=== PATIENT | male | born 1995 | race Caucasian/White ===

== ENCOUNTER → 2024-10-10 | Outpatient (CLI) | payer MEDICAID, SELFPAY ==
[2024-10-10 15:25] LABS: Hemoglobin 14.1 g/dL (13.0-16.5); Mean Corp Hgb Conc 35.3 g/dL (32-36); Mean Corpuscular Hgb 30.5 pg (27.0-32.0); Mean Corpuscular Volume 86.4 fL (80-94); Mean Platelet Vol. 9.3 fl (6.2-12.0); Platelet Count 260 K/mm3 (150-450); RBC Distribution Width CV 11.9 % (11.6-14.6); RBC Distribution Width SD 37.4 fl (35.1-43.9); Red Blood Count 4.63 M/mm3 (4.6-6.2); White Blood Count 9.7 K/mm3 (4.4-11.0)
[2024-10-10 21:46] LABS: ALB/GLOB Ratio 1.5 RATIO (0.9-2.4); AST(SGOT) 29 U/L (<=37); Alanine Aminotransfer ALT/SGPT 52 U/L (<=46); Albumin, Serum 4.5 g/dL (3.5-5.0); Alkaline Phosphatase 83 U/L (40-129); BUN 16 mg/dL (4-19); BUN/Creat Ratio 15.4 RATIO (10-20); Creatinine, Serum 1.05 mg/dL (0.70-1.20); EST Glomerular Filtration Rate 100 (>60); Glucose 85 mg/dL (70-99); Protein, Total 7.5 g/dL (5.9-8.4); Thyroid Stim Hormone (TSH) 0.489 uIU/mL (0.300-4.200); Total Bilirubin 0.33 mg/dL (0.00-1.30); Vitamin D,25 Hydroxy 11.8 ng/mL (30-100)
[2024-10-10 22:25] LABS: Anion Gap 14 (5-15); Calcium,Total 9.4 mg/dL (7.6-11.0); Carbon Dioxide 20.9 mmol/L (21.0-32.0); Chloride 103 mmol/L (98-108); Potassium 3.9 mmol/L (3.3-5.1); Sodium Level 138 mmol/L (133-145)
== END | disposition home or self-care (01) ==
LOC: VSLAB 15:05
PROVIDERS: PCP Nurse Practitioner Family; Visit Provider Nurse Practitioner Family
DX: F41.1 Generalized anxiety disorder (principal)
CPT/HCPCS: 36415; 80053; 82306; 84443; 85027

== ENCOUNTER → 2025-02-23 | Outpatient (CLI) | payer OTHER, SELFPAY ==
--- NOTE | 2025-02-23 14:23 | RAD_ITS ---
PROCEDURE: LUMBAR SPINE 2 OR 3 VIEWS 02/23/2025 REASON FOR EXAM: BACK INJURY TECHNIQUE: LUMBAR SPINE 2 OR 3 VIEWS COMPARISON: None FINDINGS: Vertebrae: Unremarkable Discs: Disc spaces are well-maintained. Alignment: Exaggerated lumbar lordosis Other: RAD/Lumbar Spine 2 or 3 Views IMPRESSION: Exaggerated lumbar lordosis. The disc spaces are well-maintained. Reading Location: [facility]
--- NOTE | 2025-02-23 14:23 | RAD_ITS ---
PROCEDURE: LUMBAR SPINE 2 OR 3 VIEWS 02/23/2025 REASON FOR EXAM: BACK INJURY TECHNIQUE: LUMBAR SPINE 2 OR 3 VIEWS COMPARISON: None FINDINGS: Vertebrae: Unremarkable Discs: Disc spaces are well-maintained. Alignment: Exaggerated lumbar lordosis Other: RAD/Lumbar Spine 2 or 3 Views IMPRESSION: Exaggerated lumbar lordosis. The disc spaces are well-maintained. Reading Location: [facility]
== END | disposition home or self-care (01) ==
PROVIDERS: PCP Nurse Practitioner Family; Referring Provider Physician Assistant Surgical; Visit Provider Physician Assistant Surgical
DX: S39.92XA Unspecified injury of lower back, initial encounter (principal); X58.XXXA Exposure to other specified factors, initial encounter
CPT/HCPCS: 72100

== ENCOUNTER → 2025-07-10 | Outpatient (CLI) | payer OTHER, SELFPAY ==
--- NOTE | 2025-07-10 11:00 | RAD_ITS ---
PROCEDURE: KNEE 4 OR MORE VIEWS 07/10/2025 REASON FOR EXAM: PAIN IN LEFT KNEE TECHNIQUE: Procedure Code: RADKN Modality: DX Procedure: KNEE 4 OR MORE VIEWS Left knee four views COMPARISON: None FINDINGS: There is no fracture or dislocation identified. Soft tissue swelling is noted in the prepatellar soft tissues. There is no visible radiopaque foreign body. Mineralization is normal. There is no visible atherosclerosis. RAD/Knee 4 or More Views IMPRESSION: There is soft tissue swelling with no fracture or dislocation identified. Reading Location: [facility]
--- OUTSIDE RECORDS SUMMARY | 2025-07-10 13:30 | XMS RPT_ITS | CCD ---
Author Organization [facility] Care Team Providers Care Crisis Therapist Name Role Phone CHANDURKAR, ALAKNANDA S Unavailable Unavaila ble CHANDURKAR, ALAKNANDA S Unavailable Unavaila ble Stephen Bran Olaf Unavailable Unava ilGarth Nogueira Attending Unavailable Varsha Pinedo Attending Unavailable PALOMA Georeg Attending UnavailXiao Shaw Attending Unavailable William BOAT MECHANIC-C, Juliet Primary Care Provider William BOAT MECHANIC-C, Juliet Attending Provider William BOAT MECHANIC-C, [facility] Primary Care Provider William BOAT MECHANIC-C, Juliet Referring Provider Isma Pace Attending Provider Panda Jha Attending Provider [phone] Panda Jha Referring Provider [phone] William BOAT MECHANIC-C, Juliet Primary Care Provider William BOAT MECHANIC-C, Juliet Referring Provider William VSC, Juliet Referring Unavailabl e William VSC, Juliet Primary Care UnavailPanda Eddy Attending Unavailable William VSC, Juliet Primary Care Unavailabl e William VSC, Juliet Attending UnavailPanda Eddy Referring Unavailable William VSC, Juliet Primary Care UnavailPanda Eddy Attending Unavailable Isma Pace Attending Unavailable William VSC, Juliet Referring Unavailabl e William VSC, Juliet Primary Care UnavailIsma Hair Attending Unavailable William VSC, Juliet Referring Unavailabl e William VSC, Juliet Primary Care Unavailabl e William VSC, Juliet Referring UnavailPanda Eddy Attending Unavailable William VSC, [facility] e [facility], [facility] Attending Unavailable [facility], [facility] Referring [facility] e [facility], [facility] Referring [facility] Attending Unavailable [facility], [facility] Unavailabl e Medications Current Medications Medication Drug Class(es) Dates Sig (Normalized) Sig (Original) Veazie (Nk) (2 sources) Start: 03-02-2025 Veazie (Nk) A ctive March 02, 2025 12:00am Completed/Discontinued Medications Medication Drug Class(es) Dates Sig (Normalized) Sig (Original) cyclobenzaprine hydrochloride 10 mg oral tablet (5 sources) Muscle Relaxant Start: 03-02-2025 End: 03-07-2025 take 1 tablet by mouth three times daily as needed for muscle spasms Cyclobenzaprine 10 mg tablet Discontinued 10 mg PO THREE TIMES A DAY as needed for muscle spasm 20 5 0 March 02, 2025 5:13pm March 06, 2025 12:00am March 07, 2025 12:07am Start: 02-23-2025 End: 02-28-2025 take 1 tablet by mouth three times daily as needed for muscle spasms Cyclobenzaprine 10 mg tablet Discontinued 10 mg PO THREE TIMES A DAY as needed for muscle spasm 20 5 0 February 23, 2025 12:00am February 27, 2025 12:00am February 28, 2025 12:06am methylPREDNISolone 4 mg oral tablet (4 sources) Corticosteroid Start: 02-23-2025 End: 03-01-2025 take 1 tablet by mouth once Methylprednisolone (Medrol (Mohan)) 4 mg tablets,dose pack Discontinued 4 mg PO per package directions 21 6 0 February 23, 2025 12:00am February 28, 2025 12:00am March 01, 2025 12:07am Problems Problem Classification Problem Date Documented Date Episodic/Chronic Administrative/social admission (6 sources) Patient encounter status; Translations: [Encounter for pre-employment examination] 10-31-2024 Episodic Anxiety disorders (1 source) Generalized anxiety disorder; Translations: [Generalized anxiety disorder] Onset: 10-24-2024 Chronic Attention-deficit, conduct, and disruptive behavior disorders (1 source) Attention-deficit hyperactivity disorder, unspecified type; Translations: [ADHD] Onset: 10-10-2022 Chronic Other injuries and conditions due to external causes (1 source) Unspecified injury of lower back, initial encounter; Translations: [Unspecified injury of lower back, initial encounter] Onset: 03-14-2025 Episodic Sprains and strains (8 sources) Lower back injury; Translations: [Strain of muscle, fascia and tendon of lower back, initial encounter] Onset: 03-27-2025 02-24-2025 Episodic Results Test Name Value Interpretation Reference Range Facility Urgent Care Visit Reporton 0 03-10-2025 Urgent Care Visit Report [facility] [address], [address] [place] [address] OFFICE VISIT Date of Service: 03/10/25 MR#: [id number] Acct: [id number] Name: HAI WALTERS Rep #: [id number] : 1995 Provider: KARTIK Mckinnon Age/Sex: 29/M Location: [facility] Status: Signed Intake Vital Signs 03/10/25 16:36 BP 130/74 H Blood Pressure Location Lt brachial Position Sitting Respiration 16 Pulse 89 Pulse Source NIBP Temp 98.0 F Temp Source Oral Pulse Oximetry (%) 99 Oxygen Delivery Method room air Intake Visit Reasons: FU/BACK INJURY/[facility] Chief Complaint: WC f/u back pain Movie Theater Manager Required: No Allergies No Known Allergies Allergy (Verified 03/10/25 16:36) Medications ???Medication ???Instructions ???Recorded ???Confirmed ???Type NK 03/02/25 03/10/25 History Have you fallen in the past year?: Yes [facility] Medical History (Updated 02/24/25 @ 06:20 by KARTIK Marino) Physical exam, pre-employment HPI HPI Chief Complaint: WC f/u back pain Details: HAI WALTERS, is a 29 M who presents to the office today for follow-up of work-related injury. Patient states that his back pain has resolved and he is ready to go back to work without restrictions. He denies numbness, tingling or loss of range of motion. No pelvic or abdominal pain. No loss of bowel or bladder control. No other associated symptoms or alleviating/aggrava ting factors. ROS Const Constitutional: No other (6 system ROS completed with pertinent findings in the HPI otherwise normal.) Exam Const General: cooperative and healthy appearing Resp Effort Inspection: normal respiratory effort Cardio Rate: regular rate Musc Thoracic/Lumbar Spine: thoracic and lumbar spine normal to inspection Skin General: no rashes or lesions noted Neuro General: patient alert and CN's II-XI intact bilaterally Psych Appearance: grossly normal Mental Status: mental status grossly normal Coding Level of Care Code Off vis,est,level 3 Diagnoses Acute myofascial strain of lumbar region S39.012A Assessment and Plan Assessment and Plan (1) Acute myofascial strain of lumbar region: Status: Acute Plan: [employer] 14 filled out releasing patient back to work today without restrictions. Patient advised to continue with at home stretching regimens and use of ibuprofen or Tylenol as needed for pain. Patient verbalized understanding and agreement with all the above. Clinical Quality Measures Falls Risk Screening/Assistive Devices Have you fallen in the past year?: Yes 03/10/251702 Date Panda Flores Signature: Date (if applicable) CC: Normal [facility] Urgent Care Visit Reporton 0 03-02-2025 Urgent Care Visit Report [facility] [address], [address] [place] [address] OFFICE VISIT Date of Service: 03/02/25 MR#: [id number] Acct: [id number] Name: HAI WALTERS MINDY Rep #: [id number] : 1995 Provider: KARTIK Mckinnon Age/Sex: 29/M Location: [facility] Status: Signed Intake Vital Signs 03/02/25 16:47 BP 110/76 Blood Pressure Location Lt brachial Position Sitting Respiration 15 Pulse 85 Pulse Source NIBP Temp 98.7 F Temp Source Oral Pulse Oximetry (%) 97 Oxygen Delivery Method room air Intake Visit Reasons: FU/BACK INJURY/[facility] Chief Complaint: WC f/u back pain Movie Theater Manager Required: No Is patient in pain?: Yes Allergies No Known Allergies Allergy (Verified 03/02/25 16:48) Medications ???Medication ???Instructions ???Recorded ???Confirmed ???Type NK 03/02/25 03/02/25 History cyclobenzaprine 10 mg tablet 10 mg PO TID PRN muscle spasm 5 03/02/25 Rx days #20 tabs Have you fallen in the past year?: Yes [facility] Medical History (Updated 02/24/25 @ 06:20 by KARTIK Marino) Physical exam, pre-employment HPI HPI Chief Complaint: WC f/u back pain Details: HAI WALTERS, is a 29 M who presents to the office today for follow-up of work-related injury to the low back. Patient states that his low back pain was improving quite a bit and then had interaction with the resident yesterday where the resident was pulling on his shoulders and caused his back to tweak. Patient denies numbness, tingling or loss of range of motion. He does state that the cyclobenzaprine is helping. No pelvic or abdominal pain. No loss of bowel or bladder control. No other associated symptoms or alleviating/aggrava ting factors. ROS Const Constitutional: No other (6 system ROS completed with pertinent findings in the HPI otherwise normal.) Exam Const General: cooperative and healthy appearing Resp Effort Inspection: normal respiratory effort Cardio Rate: regular rate Musc Thoracic/Lumbar Spine: straight leg raise negative bilaterally, paraspinal tenderness on the left in the lower lumbar, thoraco-lumbar ROM limited, thoraco-lumbar spasm on the left in the lower lumbar, no thoracic spinal tenderness and no lumbar spinal tenderness Skin General: no rashes or lesions noted Neuro General: patient alert and CN's II-XI intact bilaterally Psych Appearance: grossly normal Mental Status: mental status grossly normal Coding Level of Care Code Off vis,est,level 3 Diagnoses Acute myofascial strain of lumbar region S39.012A Assessment and Plan Assessment and Plan (1) Acute myofascial strain of lumbar region: Status: Acute Plan: [employer] 14 filled out releasing patient back to work today with restrictions similar as last time although added that he is not able to have direct resident interaction. Patient advised to continue with stretching exercises and ibuprofen or Tylenol as needed for pain. Advise follow-up here in 1 week for reevaluation or sooner should he have any worsening symptoms or new concerns. Patient advised of other symptomatic management techniques as well as potential red flags and when appropriate to report to the ED. Patient verbalized understanding and agreement with all the above. Medications: Refilled cyclobenzaprine 10 mg PO TID 5 days PRN 20 tabs 0RF muscle spasm Clinical Quality Measures Falls Risk Screening/Assistive Devices Have you fallen in the past year?: Yes 03/02/25 1720 Date Panda VERDUGO Cosigner Signature: Date (if applicable) CC: Normal [facility] Lumbar Spine 2 or 3 Viewson 02-23-2025 Lumbar Spine 2 or 3 Views [facility] Imaging Services [address] [place] [address] Lumbar Spine 2 or 3 Views MR#: [id number] Acct: [id number] Name: HAI WALTERS MINDY Rep #: [id number] : 1995 M 29 From: Huang pérez MD PCP: NORY Paulson, BOAT MECHANIC-C Status: REG CLI Study: Lumbar Spine 2 or 3 Views Date of Exam: Exam# [id number] Ordering Dr: Panda Weston PROCEDURE: LUMBAR SPINE 2 OR 3 VIEWS 02/23/2025 REASON FOR EXAM: BACK INJURY TECHNIQUE: LUMBAR SPINE 2 OR 3 VIEWS COMPARISON: None FINDINGS: Vertebrae: Unremarkable Discs: Disc spaces are well-maintained. Alignment: Exaggerated lumbar lordosis Other: RAD/Lumbar Spine 2 or 3 Views IMPRESSION: Exaggerated lumbar lordosis. The disc spaces are well-maintained. Reading Location: [facility] CC: [facility] BOAT MECHANIC-C Juliet Thomas; KARTIK Mckinnon Conveyor Feeder Offbearer: Signed Normal [facility] Urgent Care Visit Reporton 0 02-23-2025 Urgent Care Visit Report [facility] [address], [address] [place] [address] OFFICE VISIT Date of Service: 02/23/25 MR#: [id number] Acct: [id number] Name: HAI WALTERS Rep #: [id number] : 1995 Provider: KARTIK Mckinnon Age/Sex: 29/M Location: [facility] Status: Signed Intake Vital Signs 02/23/25 14:59 BP 120/64 Blood Pressure Location Lt brachial Position Sitting Respiration 15 Pulse 64 Pulse Source NIBP Temp 98.2 F Temp Source Oral Pulse Oximetry (%) 98 Oxygen Delivery Method room air Intake Visit Reasons: PA/BACK INJURY/[facility] Chief Complaint: new back injury Movie Theater Manager Required: No Is patient in pain?: Yes Allergies No Known Allergies Allergy (Verified 02/23/25 14:59) Have you fallen in the past year?: Yes [facility] Medical History (Updated 02/24/25 @ 06:20 by Panda VERDUGO PA) Physical exam, pre-employment HPI HPI Chief Complaint: new back injury Details: HAI WALTERS, is a 29 M who presents to the office today for initial evaluation of a low back injury which occurred yesterday at work. Patient states that he was playing dodgeball and slipped multiple times falling onto his butt causing left-sided low back pain. Patient states that pain is worse today when he awoke and predominantly left low side of the back. He denies numbness, tingling or loss of range of motion. No pelvic or abdominal pain. No loss of bowel or bladder control. Patient denies history of low back pain. No other associated symptoms or alleviating/aggrava ting factors. ROS Const Constitutional: No other (6 system ROS completed with pertinent findings in the HPI otherwise normal.) Exam Const General: cooperative and healthy appearing Resp Effort Inspection: normal respiratory effort Cardio Rate: regular rate Musc Thoracic/Lumbar Spine: straight leg raise negative bilaterally, paraspinal tenderness on the left in the lower lumbar, thoraco-lumbar ROM limited, thoraco-lumbar spasm on the left in the lower lumbar, no thoracic spinal tenderness and no lumbar spinal tenderness Skin General: no rashes or lesions noted Neuro General: patient alert and CN's II-XI intact bilaterally Psych Appearance: grossly normal Mental Status: mental status grossly normal Coding Level of Care Code Off vis,est,level 4 Diagnoses Acute myofascial strain of lumbar region S39.012A Assessment and Plan Assessment and Plan (1) Acute myofascial strain of lumbar region: Status: Acute Orders: Orders Lumbar Spine 2 or 3 Views 02/23/25 S39.92XA - Unspecified injury of lower back, initial encounter Medications: New cyclobenzaprine 10 mg PO TID 5 days PRN 20 tabs 0RF muscle spasm methylprednisolone (Medrol (Mohan)) 4 mg PO PER PKG DIR 6 days 21 tabs 0RF Plan Three-view lumbar x-ray read and interpreted by myself findings no acute osseous abnormalities, awaiting radiology interpretation at time of patient discharge. Cyclobenzaprine and Medrol Dosepak as prescribed today. First report of injury form as well as [employer] 14 filled out releasing patient back to work today with restrictions of no lifting/pushing/pul ling greater than 5 pounds and no squatting, stooping, bending. Encouraged to get plenty of rest, drink lots of clear liquids, and use Tylenol or Ibuprofen (unless contraindicated) for comfort. Patient also educated on other symptomatic management techniques. To be seen in 1 week for follow-up; sooner if worsening of symptoms. Patient advised of potential red flags and when appropriate to report to the ED. Patient verbalized understanding and agreement with all the above. Clinical Quality Measures Falls Risk Screening/Assistive Devices Have you fallen in the past year?: Yes 02/24/25 0623 Date Panda Flores Signature: Date (if applicable) CC: Normal [facility] Office Visit Reporton [address] [facility] [address] [place] [address] OFFICE VISIT Date of Service: 12/08/24 MR#: [id number] Acct: [id number] Patient: HAI WALTERS Rep #: [id number] : 1995 Provider: KARTIK Mckinnon Age/Sex: 29/M Location: [facility] Status: Signed Intake Intake Visit Reasons: PE NON DOT DRUG / [facility] Office Procedures [facility] Billing Sheet Testing Pre-Employment Drug Screen [facility]: Yes 12/15/24 1349 Date Panda Huertaignjessica Signature: Date (if applicable) CC: Normal [facility] Office Visit Reporton [address] [facility] [address] [place] [address] OFFICE VISIT Date of Service: 10/31/24 MR#: [id number] Acct: [id number] Patient: HAI WALTERS Rep #: [id number] : 1995 Provider: KARTIK Soto Age/Sex: 28/M Location: [facility] Status: Signed Intake Intake Visit Reasons: [facility] Billing Sheet Testing Pre-Employment Drug Screen: Yes Pre-Employment PE: Yes 11/07/24 0706 Date Isma Flores Signature: Date (if applicable) CC: Normal [facility] Urgent Care Visit Reporton 0 10-31-2024 Urgent Care Visit Report [facility] [address], [address] [place] [address] OFFICE VISIT Date of Service: 10/31/24 MR#: [id number] Acct: [id number] Name: HAI WALTERS Rep #: [id number] : 1995 Provider: KARTIK Soto Age/Sex: 28/M Location: [facility] Status: Signed Intake Intake Visit Reasons: PE NON DOT PHYSICAL/[facility] Medical History (Updated 10/31/24 @ 09:25 by KARTIK Welsh) Physical exam, pre-employment HPI HPI Details: HAI WALTERS, is a 28 M who presents to the office today for Office Procedures Physical Exam Coding PE Coding Pre-employment PE: Yes Coding Level of Care Code No Charge Diagnoses Physical exam, pre-employment Z02.1 Assessment and Plan Assessment and Plan (1) Physical exam, pre-employment: Status: Acute 10/31/24 0959 Date Isma Flores Signature: Date (if applicable) CC: Normal [facility] Anion gap in Serum or Plasma Ordered By: [facility] Juliet Thomas on 10-10-2024 Anion gap [Moles/Vol] 14 mmol/L 5-15 [facility] BUN/creatinine ratioOrdered By: [facility] Juliet Thomas on 03-03-2025 Urea nitrogen/Creatinine [Mass ratio] 15.4 mg/mg 10-20 [facility] Bilirubin, totalOrdered By: [facility] Juliet Thomas on 10-10-2024 Bilirubin [Mass/Vol] 0.33 mg/dL 0.00-1.30 [facility] CBC-Complete Blood Cnt No Di ffon 10-10-2024 Erythrocyte distribution width (RBC) [Ratio] 11.9 % Normal 11.6-14.6 [facility] Comment on above: Performed By: #### L 506.1001, L100.0500, L501.9520, L500.4050 #### [facility] [address] [place], [address] Hematocrit (Bld) [Volume fraction] 40.0 % Normal 40-54 [facility] Comment on above: Performed By: #### L 506.1001, L100.0500, L501.9520, L500.4050 #### [facility] [address] [place], [address] Hemoglobin (Bld) [Mass/Vol] 14.1 g/dL Normal 13.0-16.5 [facility] Comment on above: Performed By: #### L 506.1001, L100.0500, L501.9520, L500.4050 #### [facility] [address] [place], [address] MCH (RBC) [Entitic mass] 30.5 pg Normal 27.0-32.0 [facility] Comment on above: Performed By: #### L 506.1001, L100.0500, L501.9520, L500.4050 #### [facility] [address] [place], [address] MCHC (RBC) [Mass/Vol] 35.3 g/dL Normal 32-36 [facility] Comment on above: Performed By: #### L 506.1001, L100.0500, L501.9520, L500.4050 #### [facility] [address] [place], [address] MCV (RBC) [Entitic vol] 86.4 fL Normal 80-94 [facility] Comment on above: Performed By: #### L 506.1001, L100.0500, L501.9520, L500.4050 #### [facility] [address] [place], [address] Platelet mean volume (Bld) [Entitic vol] 9.3 fL Normal 6.2-12.0 [facility] Comment on above: Performed By: #### L 506.1001, L100.0500, L501.9520, L500.4050 #### [facility] [address] [place], [address] Platelets (Bld) [#/Vol] 260 10*3/uL Normal 150-450 [facility] Comment on above: Performed By: #### L 506.1001, L100.0500, L501.9520, L500.4050 #### [facility] [address] [place], [address] RBC (Bld) [#/Vol] 4.63 10*6/uL Normal 4.6-6.2 [facility] Comment on above: Performed By: #### L 506.1001, L100.0500, L501.9520, L500.4050 #### [facility] [address] [place], [address] RDW SD 37.4 fl Normal 35.1-43.9 [facility] Comment on above: Performed By: #### L 506.1001, L100.0500, L501.9520, L500.4050 #### [facility] [address] [place], [address] WBC (Bld) [#/Vol] 9.7 10*3/uL Normal 4.4-11.0 [facility] Comment on above: Performed By: #### L 506.1001, L100.0500, L501.9520, L500.4050 #### [facility] [address] [place], [address] Carbon dioxide, total [Moles /volume] in Central venous bloodOrdered By: [facility] Juliet Thomas on 10-10-2024 CO2 [Moles/Vol] 20.9 mmol/L Low 21.0-32.0 [facility] Chloride assayOrdered By: [facility] Juliet Thomas on 10-10-2024 Chloride [Moles/Vol] 103 mmol/L 98-108 [facility] Comprehensive Metabolic Prof ilon 10-10-2024 Calcium [Mass/Vol] 9.4 mg/dL Normal 7.6-11.0 [facility] Comment on above: Performed By: #### L 506.1001, L100.0500, L501.9520, L500.4050 #### [facility] [address] [place], [address] Chloride [Moles/Vol] 103 mmol/L Normal 98-108 [facility] Comment on above: Performed By: #### L 506.1001, L100.0500, L501.9520, L500.4050 #### [facility] [address] [place], [address] CO2 [Moles/Vol] 20.9 mmol/L Low 21.0-32.0 [facility] Comment on above: Performed By: #### L 506.1001, L100.0500, L501.9520, L500.4050 #### [facility] [address] [place], [address] GAP 14 Normal 5-15 [facility] Comment on above: Performed By: #### L 506.1001, L100.0500, L501.9520, L500.4050 #### [facility] [address] [place], [address] Potassium [Moles/Vol] 3.9 mmol/L Normal 3.3-5.1 [facility] Comment on above: Performed By: #### L 506.1001, L100.0500, L501.9520, L500.4050 #### [facility] [address] [place], [address] Sodium [Moles/Vol] 138 mmol/L Normal 133-145 [facility] Comment on above: Performed By: #### L 506.1001, L100.0500, L501.9520, L500.4050 #### [facility] [address] [place], [address] Erythrocyte distribution wid th ratioOrdered By: [facility] Juliet Thomas on 10-10-2024 Erythrocyte distribution width (RBC) [Ratio] 11.9 % 11.6-14.6 [facility] Erythrocyte distribution wid th standard deviationOrdered By: [facility] Juliet Thomas on 10-10-2024 Erythrocyte distribution width (RBC) [Entitic vol] 37.4 fL 35.1-43.9 [facility] GFR/1.73 sq M.predicted angelica g non-blacks MDRD (S/P/Bld) [Vol rate/Area]Ordered By: [facility] Juliet Thomas on 10-10-2024 Estimated GFR (MDRD) Non-Af Amer 100 >60 [facility] Comment on above: mL/min/1.73m2 CKD-EP I Creatinine Equation (2020) Hematocrit Auto (Bld) [Volum e fraction]Ordered By: [facility] Juliet Thomas on 10-10-2024 Hematocrit (Bld) [Volume fraction] 40.0 % 40-54 [facility] Hemoglobin measurementOrdere d By: [facility] Juliet Thomas on 10-10-2024 Hemoglobin (Bld) [Mass/Vol] 14.1 g/dL 13.0-16.5 [facility] L506.1001on 10-10-2024 Vitamin D 25-OH 11.8 ng/mL Low 30-100 [facility] Comment on above: Result Comment: Concepcion min D Status Deficiency: <20 ng/mL (50nmol/L) Insufficiency: 20-30 ng/mL (50-75 nmol/L) Sufficiency: 30-100 ng/mL (75-250 nmol/L) Toxicity: >100 ng/mL (>250 nmol/L) Performed By: #### L 506.1001, L100.0500, L501.9520, L500.4050 #### [facility] Laboratory [address] [place], [address] Laboratory - Chemistry and C hemistry - challengeOrdered By: [facility] Juliet Thomas on 10-10-2024 AST [Catalytic activity/Vol] 29 U/L <38 [facility] MCV (mean corpuscular volume ) determinationOrdered By: [facility] Juliet Thomas on 10-10-2024 MCV (RBC) [Entitic vol] 86.4 fL 80-94 [facility] Mean corpuscular hemoglobin (MCH) determinationOrdered By: [facility] Juliet Thomas on 10-10-2024 MCH (RBC) [Entitic mass] 30.5 pg 27.0-32.0 [facility] Mean corpuscular hemoglobin concentration (MCHC) determinationOrdered By: [facility] Juliet Tohmas on 10-10-2024 MCHC (RBC) [Mass/Vol] 35.3 g/dL 32-36 [facility] Mean platelet volume determi nationOrdered By: [facility] Juliet Thomas on 10-10-2024 Platelet mean volume (Bld) [Entitic vol] 9.3 fL 6.2-12.0 [facility] Platelet countOrdered By: [facility] Juliet Thomas on 10-10-2024 Platelets (Bld) [#/Vol] 260 10*3/uL 150-450 [facility] Potassium (Unsp spec) [Mass/ Vol]Ordered By: [facility] Juliet Thomas on 10-10-2024 Potassium [Moles/Vol] 3.9 mmol/L 3.3-5.1 [facility] RBC Auto (Bld) [#/Vol]Ordere d By: [facility] Juliet Thomas on 10-10-2024 RBC (Bld) [#/Vol] 4.63 10*6/uL 4.6-6.2 [facility] Serum creatinine measurement (mass/volume)Ordered By: [facility] Juliet Thomas on 10-10-2024 Creatinine [Mass/Vol] 1.05 mg/dL 0.70-1.20 [facility] Serum globulin measurementOr dered By: [facility] Juliet Thomas on 10-10-2024 Globulin (S) [Mass/Vol] 3.0 g/dL 2.2-4.2 [facility] Serum glucose measurement (m ass/volume)Ordered By: [facility] Juliet Thomas on 10-10-2024 Glucose [Mass/Vol] 85 mg/dL 70-99 [facility] Serum or plasma alanine gonzales otransferase (ALT) measurementOrdered By: [facility] Juliet Thomas on 10-10-2024 ALT [Catalytic activity/Vol] 52 U/L High <47 [facility] Serum or plasma albumin mary jo urement (mass/volume)Ordered By: [facility] Juliet Thomas on 10-10-2024 Albumin [Mass/Vol] 4.5 g/dL 3.5-5.0 [facility] Serum or plasma albumin/glob ulin mass ratioOrdered By: [facility] Juliet Thomas on 10-10-2024 Albumin/Globulin [Mass ratio] 1.5 {ratio} 0.9-2.4 [facility] Serum or plasma alkaline aditi sphatase measurementOrdered By: [facility] Juliet Thomas on 10-10-2024 ALP [Catalytic activity/Vol] 83 U/L 40-129 [facility] Serum or plasma calcium mary jo urement (mass/volume)Ordered By: [facility] Juliet Thomas on 10-10-2024 Calcium [Mass/Vol] 9.4 mg/dL 7.6-11.0 [facility] Serum or plasma urea nitroge n measurement (mass/volume)Ordered By: [facility] Juliet Thomas on 10-10-2024 Urea nitrogen [Mass/Vol] 16 mg/dL 4-19 [facility] Sodium levelOrdered By: [facility] Juliet Thomas on 10-10-2024 Sodium [Moles/Vol] 138 mmol/L 133-145 [facility] TSH DL <= 0.005 mIU/L QnOrde red By: [facility] Juliet Thomas on 10-10-2024 Thyroid Stimulating Hormone (TSH) 0.489 uIU/mL 0.300-4.200 [facility] Thyroid Stim Hormone (TSH)on 10-10-2024 TSH 0.489 uIU/mL Normal 0.300-4.200 [facility] Comment on above: Performed By: #### L 506.1001, L100.0500, L501.9520, L500.4050 #### [facility] Laboratory [address] [place], [address] Total proteinOrdered By: [facility] Juliet Thomas on 10-10-2024 Protein [Mass/Vol] 7.5 g/dL 5.9-8.4 [facility] Vitamin D, 25-hydroxyOrdered By: [facility] Juliet Thomas on 10-10-2024 Vitamin D 25-Hydroxy 11.8 ng/mL Low 30-100 [facility] Comment on above: Vitamin D StatusDefi ciency: <20 ng/mL (50nmol/L)Insufficiency: 20-30 ng/mL (50-75 nmol/L)Sufficiency: 30-100 ng/mL (75-250 nmol/L)Toxicity: >100 ng/mL (>250 nmol/L) White blood cell (WBC) count Ordered By: [facility] Juliet Thomas on 10-10-2024 WBC (Bld) [#/Vol] 9.7 10*3/uL 4.4-11.0 [facility] LIPID PANELon 04-09-2022 Cholesterol [Mass/Vol] 169 mg/dL Normal <200 [facility] Comment on above: Performed By: #### P ROFLIPID #### [facility] [address] [address] Cholesterol in HDL [Mass/Vol] 67.0 mg/dL Normal >40 [facility] Comment on above: Performed By: #### P ROFLIPID #### [facility] [address] [address] LDL,CALC 92 Normal SEE COMMENT [facility] Comment on above: Result Comment: The National Cholesterol Education Program's (NCEP) Adult Treatment Panel III (ATPIII) guidelines for lipids are as follows: LDL Cholesterol - Primary Target of Therapy Target value for LDL is based on overall risk of heart disease: <100 MG/DL Is desirable if clinical atherosclerotic disease or diabetes has been diagnosed. <130 MG/DL Is desirable if 2 or more risk factors are present. Total Cholesterol <200 Desirable 200-239 Borderline High >239 High HDL Cholesterol <40 Low >59 Desirable Serum Triglycerides <150 Normal 150-199 Borderline High 200-499 High >499 Very High The lipid profile should be correlated with the presence of other risk factors for coronary heart disease. Additional information is available at: www.nhlbi.nih.gov/guidelines/cholesterol/index.htm. Performed By: #### P ROFLIPID #### [facility] [address] [address] Triglyceride [Mass/Vol] 52 mg/dL Normal <150 T [facility] Comment on above: Performed By: #### P ROFLIPID #### [facility] [address] [address] STRESSIon 04-09-2022 STRESSI [facility] [address] [address] Stress Report HAI WALTERS [id number] REG REF [id number] 97 [birth year] Sandeep Jones MD Type of Study: Stress Procedure Procedure Date/Time: 04/09/2022 7:33:59 AM Indications: PRE EMPLOYMENT Reason for Ending: Protocol Completed Clinical Data: Protocol: Efra - 2 minute Total Exercise Time: 07:01 Max HR: 174 % Max HR Achieved: 89 Max BP: 199/67 METS: 12.8 HRxBP: 54907 Rest ECG: Sinus Bradycardia Stress ECG: no EKG changes normal hear rate and blood pressure response Symptoms: no chest pain Arrhythmias: No Rhythm Abnormality Present During Test Conclusions: Sinus Bradycardia no EKG changes normal hear rate and blood pressure response No Rhythm Abnormality Present During Test no chest pain Protocol: Efra - 2 minute Total Exercise Time: 07:01 Max HR: 174 % Max HR Achieved: 89 Max BP: 199/67 METS: 12.8 HRxBP: 99451 PRE EMPLOYMENT Protocol Completed Electronically signed by DORON RAMÍREZ M.D. 04/09/2022 3:39:35 PM Normal [facility] WCCXRSVOon 04-09-2022 WCCXRSVO Name: HAI WALTERS Phys: Garth Hernández MD : 1995 Age: 26 Sex: M Acct: [id number] Loc: [facility] Exam Date: 04/09/2022 Status: REG REF Radiology No: Unit No: [id number] PH: [phone] Diagnosis: [facility] - CLIENT ACCT EXAM: [id number] WC-CHEST SINGLE VIEW ONLY Reason For Procedure: PRE-HIRE EXAM STUDY: WC-CHEST SINGLE VIEW ONLY CLINICAL INDICATION: Preemployment evaluation TECHNIQUE: Single view chest COMPARISON: none. FINDINGS: The lungs are clear. Pulmonary vascularity is unremarkable. Heart size is normal. Costophrenic angles are clear. There is no pneumothorax. IMPRESSION: NO ACUTE PROCESS SITE: P REPORT SIGNED IN OTHER VENDOR SYSTEM 04/09/2022 Reported By: Jordy Skinner DO CC: Workcare Physician Technologist: JUAN BOO, RT/R/M Transcribed Date/Time: 04/09/2022 (09) Conveyor Feeder Offbearer: GILDARDO Printed Date/Time: 04/09/2022 (09) PAGE 1 Signed Report Normal [facility] WCLSPLon 04-09-2022 WCLSPL Name: HAI WALTERS Phys: Garth Hernández MD : 1995 Age: 26 Sex: M Acct: [id number] Loc: [facility] Exam Date: 04/09/2022 Status: REG REF Radiology No: Unit No: [id number] PH: [phone] Diagnosis: [facility] - CLIENT ACCT EXAM: [id number] WC-LUMBAR SPINE/2-3 VWS Reason For Procedure: PRE-HIRE EXAM STUDY: WC-LUMBAR SPINE/2-3 VWS CLINICAL INDICATION: Preemployment evaluation TECHNIQUE: 2 views lumbar spine COMPARISON: None. FINDINGS: Lumbar alignment is maintained. No acute compression deformity identified. Disc heights preserved. IMPRESSION: NO ACUTE COMPRESSION DEFORMITY SITE: P REPORT SIGNED IN OTHER VENDOR SYSTEM 04/09/2022 Reported By: Jordy Skinner DO CC: Workcare Physician Technologist: JUAN BOO, RT/R/M Transcribed Date/Time: 04/09/2022 (915) Conveyor Feeder Offbearer: GILDARDO Printed Date/Time: 04/09/2022 (9950) PAGE 1 Signed Report Normal [facility] ED NOTEon 03-12-2021 ED NOTE HNO ID: [id number] Author: Jason Cole RN Service: ? Author Type: Registered Nurse Type: ED Notes Filed: 03/12/2021 4:53 PM Note Text: Discharge instructions and prescriptions reviewed with patient via teachback. Pt verbalizes understanding. Pt awake and alert, respirations regular and unlabored. No further questions for this RN. Normal [facility] ED NOTE HNO ID: [id number] Author: Jason Cole RN Service: ? Author Type: Registered Nurse Type: ED Notes Filed: 03/12/2021 4:08 PM Note Text: Patient has poison mily on right arm, bilateral legs. Patient states rash started on Thursday. Normal [facility] ED PROV NOTEon 03-12-2021 ED PROV NOTE HNO ID: [id number] Author: Jaron Sin PA-C Service: ? Author Type: Physician Salesperson New Cars Type: ED Provider Notes Filed: 03/12/2021 4:39 PM Note Text: [facility] EMERGENCY DEPARTMENT EMERGENCY DEPARTMENT ENCOUnter Pt Name: Hai Walters Birthdate 1995 Date of evaluation: 03/12/2021 Provider: Jaron Sin MS, PA-C CHIEF COMPLAINT chief complaint Rash HISTORY OF PRESENT ILLNESS (Location/Symptom, Timing/Onset, Context/Setting, Quality, Duration, Modifying Factors, Severity) Note limiting factors. HPI Hai Walters is a 25 year old male who presents to the emergency department with complaint of a rash, possibly from poison mily. This has been present since the weekend after he was walking in some brush. It is mostly on his right forearm and left leg. Describes this as itchy but not painful. There is no pain scale. No radiating symptoms. He recognizes that a couple new areas have presented themselves. No definitive aggravating or alleviating factors, no other associated symptoms. This patient's PMH is significant for nothing relevant. The patient's family history is significant for thing relevant. The patient is a non-smoker. I have reviewed the patient's personal and family past medical history as well as the nurse's notes and I agree. Personal history and family past medical history as listed in this chart. I have reviewed the patient's vitals and agree. REVIEW OF SYSTEMS (2+ for level 4; 10+ for level 5) Review of Systems This patient's personal and family past medical history as stated in HPI and otherwise unremarkable. ROS as stated in HPI otherwise unremarkable, a total of 10 systems reviewed. PAST MEDICAL HISTORY No past medical history on file. SURGICAL HISTORY No past surgical history on file. CURRENT MEDICATIONS Previous Medications IBUPROFEN (MOTRIN) 600 MG TABLET Take 1 tablet by mouth every 12 hours as needed for Pain. ALLERGIES Patient has no known allergies. FAMILY HISTORY No family history on file. SOCIAL HISTORY Social History Tobacco Use - Smoking status: Never Smoker - Smokeless tobacco: Never Used Vaping Use - Vaping Use: Some days Substance Use Topics - Alcohol use: Yes Comment: socially - Drug use: Never SCREENINGS PHYSICAL EXAM (up to 7 for level 4, 8 or more for level 5) Physical Exam Constitutional: Patient is AAO x3, appears to be well-nourished and hydrated. Psych: Appropriate mood and affect for chief complaint. Patient is calm and pleasant. Integumentary: Skin intact, there is a rash on multiple areas of his body in variable stages consistent with poison mily with macular areas mixed with vesicular areas in excoriated patterns that easily allie when touched, no ecchymosis, no soft tissue swelling, skin is warm and dry. Neuro: Patient has sensation over the affected area as well as distally, no gross sensory or motor deficit. Vascular: Good ulnar and radial pulses bilaterally. Respiratory: No tachypnea. Patient speaks in full sentences. Musculoskeletal: Muscle grading in bilateral upper extremities is 5/5. No bony tenderness. Extremities: Skin is warm and dry. No soft tissue swelling or evidence of secondary infection. Rash consistent with poison mily most pronounced on the volar right forearm and anterolateral left thigh. HENT: Head appears atraumatic and normocephalic. Trachea midline. Eyes: Conjunctivae are clear. Full extraocular eye movements intact. ? LABS: Labs Reviewed - No data to display All other labs were within normal range or not returned as of this dictation. EMERGENCY DEPARTMENT COURSE and DIFFERENTIAL DIAGNOSIS/MDM: Vitals: There were no vitals filed for this visit. Medications - No data to display MDM The patient came here with complaint of itchy rash. By my findings the patient seems to be suffering from a rash from a disorder such as poison mily. Diagnostic studies not clinically indicated. Risk factors: None. Treatment provided here: He with a dose of steroids here. Patient comes in with a rash consistent with poison mily. This started after walking in some brush. It is too extensive to use topical steroid cream so oral steroids and tapering steroids were prescribed. He will also use Zanfel soap. See home-going instructions for more detailed information. There is no evidence of secondary infection, he does not appear to be septic or toxic and has no focal deficits or weakness. He agrees with treatment and plan as well as discharge and follow-up. I have discussed with the patient the level of uncertainty with undifferentiated disorders associated with their visit and clearly explained the need to follow-up as noted on the discharge instructions, or return to the Emergency Department immediately if the condition worsens, or for any new symptoms or concerns. I discussed with the patient on the current clinical impression and (more content not included)... Normal [facility] Vital Signs Date Time Vital Sign Value Performing Clinician Dayna bustillo 03-10-2025 16:36-0400 Body temperature 98 [degF] Juliet Thomas NP-C Work Phone: [facility] 03-10-2025 16:36-0400 Diastolic blood pressure 74 mm[Hg] Juliet Thomas NP-C Work Phone: [facility] 03-10-2025 16:36-0400 Heart rate 89 /min Juliet Thomas NP-C Work Phone: [facility] 03-10-2025 16:36-0400 Respiratory rate 16 /min Juliet Thomas NP-C Work Phone: [facility] 03-10-2025 16:36-0400 SaO2% (BldA) [Mass fraction] 99 % Juliet Thomas BOAT MECHANIC-C Work Phone: [phone](305)110-928610 [place] [address] 03-10-2025 16:36-0400 Systolic blood pressure 130 mm[Hg] Juliet Thomas BOAT MECHANIC-C Work Phone: 2(823)296-394110 [place] [address] 03-02-2025 16:47-0400 Body temperature 98.7 [degF] Juliet Thomas BOAT MECHANIC-C Work Phone: 4(899)[phone] [place] [address] 03-02-2025 16:47-0400 Diastolic blood pressure 76 mm[Hg] Juliet Thomas BOAT MECHANIC-C Work Phone: 4(867)421-554910 [place] [address] 03-02-2025 16:47-0400 Heart rate 85 /min Juliet Thomas BOAT MECHANIC-C Work Phone: 9(074)[phone] [place] [address] 03-02-2025 16:47-0400 Respiratory rate 15 /min Juliet Thomas BOAT MECHANIC-C Work Phone: 2(403)356-417610 [place] [address] 03-02-2025 16:47-0400 SaO2% (BldA) [Mass fraction] 97 % Juliet Thomas BOAT MECHANIC-C Work Phone: 8(878)358-690810 [place] [address] 03-02-2025 16:47-0400 Systolic blood pressure 110 mm[Hg] Juliet Thomas BOAT MECHANIC-C Work Phone: 5([phone])[phone] [place] [address] 02-23-2025 14:59-0400 Body temperature 98.2 [degF] Juliet Thomas BOAT MECHANIC-C Work Phone: 5(310)[phone] [place] [address] 02-23-2025 14:59-0400 Diastolic blood pressure 64 mm[Hg] Juliet Thomas BOAT MECHANIC-C Work Phone: 9(133)212-944410 [place] [address] 02-23-2025 14:59-0400 Heart rate 64 /min Juliet Thomas BOAT MECHANIC-C Work Phone: 3(033)526-751210 [place] [address] 02-23-2025 14:59-0400 Respiratory rate 15 /min Juliet Thomas BOAT MECHANIC-C Work Phone: 5([phone])449-688910 [place] [address] 02-23-2025 14:59-0400 SaO2% (BldA) [Mass fraction] 98 % Julietrichard Thomas BOAT MECHANIC-C Work Phone: [facility] 02-23-2025 14:59-0400 Systolic blood pressure 120 mm[Hg] Julietrichard Thomas BOAT MECHANIC-C Work Phone: [facility] Encounters Encounter Date Encounter Type Care Provider Facility Start: 03-10-2025 End: 03-10-2025 Patient encounter procedure Panda Weston [facility] Work Phone: Start: 03-10-2025 End: 03-10-2025 ambulatory Juliet Thomas BOAT MECHANIC-C Work Phone: [facility] Start: 03-02-2025 End: 03-02-2025 Patient encounter procedure Panda Weston PA -[facility] Work Phone: Start: 03-02-2025 End: 03-02-2025 ambulatory Juliet Thomas BOAT MECHANIC-C Work Phone: [facility] Start: 02-23-2025 End: 02-23-2025 Patient encounter procedure Panda VERDUGO -[facility] Work Phone: Start: 02-23-2025 End: 02-23-2025 ambulatory Julietrichard Thomas BOAT MECHANIC-C Work Phone: -[facility] Start: 02-23-2025 End: 02-23-2025 ambulatory Panda VERDUGO Facility:[facility] Start: 12-08-2024 End: 12-08-2024 Patient encounter procedure Panda VERDUGO -[facility] Work Phone: Start: 12-08-2024 End: 12-08-2024 ambulatory Juliet Thomas VSC Facility:[facility] Start: 10-31-2024 End: 10-31-2024 Patient encounter procedure Isma Jiménez PA -[facility] Work Phone: Start: 10-31-2024 End: 10-31-2024 ambulatory Isma VERDUGO Facility:[facility] Start: 10-10-2024 End: 10-10-2024 ambulatory Juliet Thomas BOAT MECHANIC-C Work Phone: [facility] Work Phone: Start: 10-10-2024 End: 10-10-2024 Patient encounter procedure [facility] Juliet ANDREA -Daron, Anitha Lopez Start: 10-10-2024 End: 10-10-2024 ambulatory Juliet Thomas Kira Facility:[facility] Start: 01-05-2024 End: 01-05-2024 ambulatory Facility:[facility] Start: 10-10-2022 ambulatory Xiao Castro [facility] Start: 08-13-2022 ambulatory INTERNATIONAL TRADE MANAGER.CLAYTON George Fa cility:[facility] Start: 04-17-2022 ambulatory Varsha Pinedo Facility:[facility] Start: 04-09-2022 ambulatory Garth Lanark Facility: [facility] Start: 08-13-2017 Ambulatory MAYRA Ruiz KESHIA Facility:9148 Procedures Date Procedure Procedure Detail Performing Clinician Start: 02-23-2025 X-ray of lumbar spin e, two or three views Juliet ANDREA Work Phone: Start: 08-26-2022 Psychiatric diagnost ic eval w/medical services Xiao Castro Payers Date Payer Category Payer Unknown [id number] 2025 Unknown [id number] 2025 Unknown [id number] 2024 Medicaid [id number] 0a [id number] 2024 Self-pay 2022 Unknown [id number] 2008 Unknown [id number] 1995 Unknown [id number] 2.16.84 [id number] Unknown [id number] 2.16. [id number] Unknown [id number] 2.16.8 [id number] Unknown [id number] 2.16.8 [id number] Unknown [id number] 2.16.8 [id number] Unknown [id number] 2.16.8 [id number] Unknown [id number] 2.16.8 [id number] Unknown [id number] 2.16.8 [id number] Unknown [id number] 2.16.8 [id number] Unknown [id number] 2.16.8 [id number] Social History Date Type Detail Facility Tobacco smoking stat [facility] Unknown if ever smoked [facility] Work Phone: Start: 10-21-2024 Sex Male (finding) [facility] Start: 1995 Sex Assigned At Male [facility] Evaluation note 02-23-2025 Note Date & Type Note Facility 02-23-2025 Evaluation note Diagnosis Onset Date Resolution Acute myofascial strain of lumbar region acute February 23, 2025 2:16pm [facility] Work Phone: Evaluation note 02-23-2025 Note Date & Type Note Facility 02-23-2025 Evaluation note Diagnosis Onset Date Resolution Acute myofascial strain of lumbar region acute February 23, 2025 2:16pm Acute myofascial strain of lumbar region acute March 02, 2025 4:[address]pm [facility] Work Phone: Radiology Diagnostic study note 02-23-2025 Note Date & Type Note Facility 02-23-2025 Radiology Diagnostic study note [facility] Imaging Services [address] [place], [place] [id number] Lumbar Spine 2 or 3 Views MR#: [id number] Acct: [id number] Name: HAI WALTERS Rep #: [id number] : 1995 M 29 From: Darell Alvarez MD PCP: NORY Paulson, BOAT MECHANIC-C Status: REG CLI Study:Lumbar Spine 2 or 3 Views Date of Exam: 02/23/25 Exam# [id number] Ordering Dr: Kira Weston PROCEDURE: LUMBAR SPINE 2 OR 3 VIEWS 02/23/2025 REASON FOR EXAM: BACK INJURY TECHNIQUE: LUMBAR SPINE 2 OR 3 VIEWS COMPARISON: None FINDINGS: Vertebrae: Unremarkable Discs: Disc spaces are well-maintained. Alignment: Exaggerated lumbar lordosis Other: RAD/Lumbar Spine 2 or 3 Views IMPRESSION: Exaggerated lumbar lordosis. The disc spaces are well-maintained. Reading Location: [place] [address] CC: [facility] BOAT MECHANICShayC Juliet Thomas; KARTIK Mckinnon ~ Conveyor Feeder Offbearer: Signed [facility] Evaluation note 10-31-2024 Note Date & Type Note Facility 10-31-2024 Evaluation note Diagnosis Onset Date Resolution Physical exam, pre-employment acute October 31, 2024 8:49am [facility] Work Phone: Evaluation note 10-31-2024 Note Date & Type Note Facility 10-31-2024 Evaluation note Diagnosis Onset Date Resolution Physical exam, pre-employment acute October 31, 2024 8:49am Acute myofascial strain of lumbar region acute February 23, 2025 2:16pm [facility] Work Phone: Evaluation note Note Date & Type Note Facility Evaluation note No assessment information availa ble [facility] Work Phone: Reason for referral (narrative) Note Date & Type Note Facility Reason for referral (narrative) No reason for referral information available [facility] Work Phone: Summary Purpose Family History No Family History Records FoundNo Family History Records FoundNo Family History Records FoundNo Family History Records FoundNo Family History Records FoundNo Family History Records Found Advance Directives No Advanced Directives Records FoundNo Advanced Directives Records FoundNo Advanced Directives Records FoundNo Advanced Directives Records FoundNo Advanced Directives Records FoundNo Advanced Directives Records Found Chief Complaint and Reason for Visit Chief Complaint Admit Date PE NON DOT PHYSICAL/[facility] October 31 8:49am PE NON DOT DRUG SCREEN/[facility] October 31, 2024 8:51am PE NON DOT DRUG / [facility] December 08, 2024 12:35pm Reason for Visit Admit Date Physical exam, pre-employment October 8:49am Reason for Visit Admit Date Physical exam, pre-employment October 8:49am Acute myofascial strain of lumbar region February 23, 2025 2:16pm Chief Complaint Admit Date PE NON DOT DRUG / [facility] December 08, 2024 12:35pm FU/BACK INJURY/[facility] March 02, 2025 4:41pm Reason for Visit Admit Date Acute myofascial strain of lumbar region February 23, 2025 2:16pm Chief Complaint Admit Date PE NON DOT DRUG / [facility] December 08, 2024 12:35pm FU/BACK INJURY/[facility] March 02, 2025 4:41pm FU/BACK IN[facility]URY/[facility] March 10, 2025 4:29pm Reason for Visit Admit Date Acute myofascial strain of lumbar region February 23, 2025 2:16pm Acute myofascial strain of lumbar region March 02, 2025 4:41pm Additional Source Comments (unrecognized sect ion and content) No Status Records FoundNo Status Records FoundNo Status Records FoundNo Status Records FoundNo Status Records FoundNo Status Records Found INFORMATION SOURCE (unrecogn ized section and content) DATE CREATED AUTHOR 02/02/2018 [facility] DATE CREATED AUTHOR AUTHOR'S ORGANIZ ATION 03/14/2021 [facility] DATE CREATED AUTHOR AUTHOR'S ORGANIZ ATION 08/18/2022 [facility] DATE CREATED AUTHOR AUTHOR'S ORGANIZ ATION 06/30/2023 [facility] DATE CREATED AUTHOR AUTHOR'S ORGANIZ ATION 01/06/2024 [facility] DATE CREATED AUTHOR AUTHOR[facility]S OR[facility]IZ AT[facility] Care Teams (unrecognized sec tion and content) Team Status: Active Member Role Status Dates EMRE Lee Primary Care Provider Activ e Team Status: Inactive Member Role Status Dates EMRE Lee Primary Care Provider Activ e Start: October 10, 2024 End: October 10, 2024 Juliet William VSC, [employer]-C Attending Provider Active Start: October 10, 2024 End: October 10, 2024 Team Status: Active Member Role/Relationship Status Dates Juliet Thomas VSC, [employer]-C Primary Care Provider Activ e Team Status: Inactive Member Role/Relationship Status Dates Juliet BURGERC, [employer] MECH[employer]IC-C Primary Care Provider Activ e Start: October 31, 2024 End: October 31, 2024 Juliet Thomas VSC, [employer] MECH[employer]IC-C Referring Provider Active Start: October 31, 2024 End: October 31, 2024 Isma Jiménez PA, PA Attending Provider Active Start: October 31, 2024 End: October 31, 2024 Team Status: Inactive Member Role/Relationship Status Dates Juliet Thomas VSC, [employer] ME[employer]-C Primary Care Provider Activ e Start: October 31, 2024 End: October 31, 2024 Juliet BURGERC, [employer] MECH[employer]IC-C Referring Provider Active Start: October 31, 2024 End: October 31, 2024 Isma Jiménez PA, PA Attending Provider Active Start: October 31, 2024 End: October 31, 2024 Team Status: Inactive Member Role/Relationship Status Dates Juliet BURGERC, [employer] MECH[employer]IC-C Primary Care Provider Activ e Start: December 08, 2024 End: December 08, 2024 Juliet Thomas VSC, [employer] MECH[employer]IC-C Referring Provider Active Start: December 08, 2024 End: December 08, 2024 Panda VERDUGO, PA Attending Provider Active Sta rt: December 08, 2024 End: December 08, 2024 Team Status: Active Member Role/Relationship Status Dates Juliet BURGERC, [employer] MECH[employer]IC-C Primary Care Provider Activ e Start: February 23, 2025 Panda Weston PA, PA Attending Provider Active Sta rt: February 23, 2025 Panda Weston PA, PA Referring Provider Active Sta rt: February 23, 2025 Team Status: Inactive Member Role/Relationship Status Dates Juliet Thomas VSC, [employer] ME[employer]IC-C Primary Care Provider Activ e Start: February 23, 2025 End: February 23, 2025 Panda VERDUGO, PA Attending Provider Active Sta rt: February 23, 2025 End: February 23, 2025 Panda Weston PA, PA Referring Provider Active Sta rt: February 23, 2025 End: February 23, 2025 Team Status: Inactive Member Role/Relationship Status Dates Juliet BURGERC, [employer] MECH[employer]IC-C Primary Care Provider Activ e Start: December 08, 2024 End: December 08, 2024 Juliet BURGERC, [employer] MECH[employer]IC-C Referring Provider Active Start: December 08, 2024 End: December 08, 2024 KARTIK Marino Attending Provider Active Sta rt: December 08, 2024 End: December 08, 2024 Team Status: Inactive Member Role/Relationship Status Dates Juliet BURGERC, [employer] MECH[employer]IC-C Primary Care Provider Activ e Start: February 23, 2025 End: February 23, 2025 KARTIK Marino Attending Provider Active Sta rt: February 23, 2025 End: February 23, 2025 KARTIK Marino Referring Provider Active Sta rt: February 23, 2025 End: February 23, 2025 Team Status: Inactive Member Role/Relationship Status Dates Juliet BURGERC, [employer] MECH[employer]IC-C Primary Care Provider Activ e Start: March 02, 2025 End: March 02, 2025 Juliet BURGERC, [employer] MECH[employer]IC-C Referring Provider Active Start: March 02, 2025 End: March 02, 2025 KARTIK Marino Attending Provider Active Sta rt: March 02, 2025 End: March 02, 2025 Team Status: Inactive Member Role/Relationship Status Dates Juliet BURGERC, [employer] MECH[employer]IC-C Primary Care Provider Activ e Start: March 10, 2025 End: March 10, 2025 Juliet BURGERC, BO[employer] MECH[employer]IC-C Referring Provider Active Start: March 10, 2025 End: March 10, 2025 KARTIK Marino Attending Provider Active Sta rt: March 10, 2025 End: March 10, 2025 Goals (unrecognized section and content) Goals may be documented in a n alternate sectionGoals may be documented in an alternate sectionGoals may be documented in an alternate sectionGoals may be documented in an alternate sectionGoals may be documented in an alternate section FOR RECORDS PERTAINING TO PATIENTS WHO ARE OR HAVE BEEN ENROLLED IN A CHEMICAL DEPENDENCY/SUBSTANCEABUSE PROGRAM, SOME INFORMATION MAY BE OMITTED. This clinical summary was aggregated from multiple sources. Caution should be exercised in using it in the provision of clinical care. This summary normalizes information from multiple sources, and as a consequence, information in this document may materially change the coding, format and clinical context of patient data. In addition, data may be omitted in some cases. CLINICAL DECISIONS SHOULD BE BASED ON THE PRIMARY CLINICAL RECORDS. [facility] provides no warranty or guarantee of the accuracy or completeness of information in this document.
== END | disposition home or self-care (01) ==
PROVIDERS: PCP Nurse Practitioner Family
DX: M25.562 Pain in left knee (principal)
CPT/HCPCS: 73564

== ENCOUNTER → 2025-07-14 | Outpatient (CLI) | payer OTHER, SELFPAY ==
[2025-07-14 15:45] LABS: Hematocrit 41.8 % (40-54); Hemoglobin 14.8 g/dL (13.0-16.5); Immature Granulocytes Count 0.020 X10^3/uL (0.0-0.0); Mean Corp Hgb Conc 35.4 g/dL (32-36); Mean Corpuscular Volume 86.0 fL (80-94); Mean Platelet Vol. 8.9 fl (6.2-12.0); NRBC Flagged by Analyzer 0 % (0-5); Platelet Count 249 K/mm3 (150-450); RBC Distribution Width CV 11.9 % (11.6-14.6); RBC Distribution Width SD 37.6 fl (35.1-43.9); Red Blood Count 4.86 M/mm3 (4.6-6.2); White Blood Count 7.1 K/mm3 (4.4-11.0)
[2025-07-14 16:42] LABS: AST(SGOT) 35 U/L (<=37); Alanine Aminotransfer ALT/SGPT 61 U/L (<=46); Albumin, Serum 4.7 g/dL (3.5-5.0); Alkaline Phosphatase 86 U/L (40-129); Anion Gap 14 (5-15); BUN 18 mg/dL (4-19); BUN/Creat Ratio 21.4 RATIO (10-20); Calcium,Total 9.4 mg/dL (7.6-11.0); Carbon Dioxide 23.5 mmol/L (21.0-32.0); Chloride 102 mmol/L (98-108); Globulin 3.0 g/dL (2.2-4.2); Glucose 89 mg/dL (70-99); HIV Nonreactive (Nonreactive); Potassium 4.2 mmol/L (3.3-5.1); Syphilis Antibodies Nonreactive (Nonreactive)
[2025-07-14 17:01] LABS: Vitamin B12 403 pg/mL (180-914); Vitamin D,25 Hydroxy 26.6 ng/mL (30-100)
[2025-07-14 17:16] LABS: Cholesterol 166 mg/dL (<=200); Low Density Lipoprotein Calc. 93 mg/dL; Triglycerides 89 mg/dL; Very Low Density Lipoprotein 18 mg/dL (5-40); cholesterol:hdl ratio screen 2.92
[2025-07-20 12:08] LABS: HEPATITIS B SURFACE AG Negative (Negative); Hep C Antibodies Non Reactive (Non Reactive); Testosterone, % Free 2.78 % (1.50-4.20); Testosterone, Free 10.45 ng/dL (5.00-21.00)
== END | disposition home or self-care (01) ==
LOC: LAB 14:51
PROVIDERS: PCP Nurse Practitioner Family
DX: Z00.00 Encounter for general adult medical examination without abnormal findings (principal); R53.83 Other fatigue; R19.7 Diarrhea, unspecified; Z72.51 High risk heterosexual behavior
CPT/HCPCS: 36415; 80053; 80061; 80074; 82306; 82607; 83036; 84402; 84403; 84443; 85025; 86703; 86780; 87491; 87591